=== PATIENT | female | born 1970 | race Caucasian/White ===

== ENCOUNTER 2024-07-06 12:05 | Day surgery (SDC) | payer MEDICAID, SELFPAY ==
--- NOTE | 2024-07-05 12:45 | ESHP_ITS ---
RE: STEPHENIE LAWLER : 1970 DATE OF ADMISSION: 07/05/2024 HISTORY OF PRESENT ILLNESS: This patient was seen by me at the [facility] on 05/10/2024. She was seen because of need for colonoscopy because of positive FOBT. The patient is 53 years old. She has had a colonoscopy 15 years ago and apparently, a polyp was removed in [place]. At the present time, she does not have any rectal bleeding, but has a positive FOBT. She denies any history of colon cancer in the family. PAST MEDICAL HISTORY: Anxiety and hyperlipidemia. PAST SURGICAL HISTORY: Endoscopy, breast reduction in 1988, fracture of the skull in 1976, and colonoscopy 15 years ago. PHYSICAL EXAMINATION: VITAL SIGNS: Her BMI was 31.26, pulse is 100, respirations 20, temperature was 97.5, and blood pressure was 145/94. GENERAL: Slightly obese white female who is weighing 185 pounds. HEENT: Head normal. Eyes, nose, and throat were normal. NECK: Normal. CHEST: Revealed regular breath sounds. ABDOMEN: Negative. IMPRESSION: 1. Gastrointestinal bleeding with positive fecal occult blood test. 2. Hyperlipidemia. COURSE OF ACTION: Advised the patient to undergo screening colonoscopy. The procedure was explained to her in detail including a perforation and bleeding, which requires surgical intervention. She is agreeable and wants to proceed with the colonoscopy, which is scheduled on 07/06/2024. DT: 12:09:44 TT: 12:44:00 Ref: [id number] - TID: [id number]
[2024-07-06] VITALS (11 sets, daily range): BP systolic 85–131; BP diastolic 59–94; PULSE 75–94; RESP 14–20; TEMP 36.8–36.9; O2SAT 91–98; BMI 31.1
--- NOTE | 2024-07-06 14:02 | SUR.OPER ---
1402 - INFORMED OF PATIENT'S REPORTED REACTION TO FENTANYL IS BAD DREAMS. PATIENT INFORMS , IT'S OKAY, I'LL BE FINE WITH THE DREAMS. IS OKAY TO PROCEED WITH PROCEDURE UNDER I.V. SEDATION.
[2024-07-06] MEDS: RINGERS LACTATED 1000 ML 1,000 ML 125 ML IV (14:05)
[2024-07-06] MEDS: MIDAZOLAM INJ 1 MG/ML VIAL 2 ML (ASD USE ONLY) 2 MG IVP (14:09)
[2024-07-06] MEDS: fentaNYL CIT INJ 50 mCg/ML AMP 2ML (ASD USE ONLY) IVP (14:15)
[2024-07-06] MEDS: DiphenhydrAMINE INJ 50 MG/ML VIAL 25 MG IVP (14:20)
== END 2024-07-06 15:25 | disposition home or self-care (01) ==
PROVIDERS: Referring Provider Surgery; Visit Provider Surgery
PROC: 0DBE8ZX Excision of Large Intestine, Via Natural or Artificial Opening Endoscopic, Diagnostic (ICD-10-PCS; CPT 45380; principal; 2024-07-06 13:45)
DX: K92.2 Gastrointestinal hemorrhage, unspecified (principal); Z86.0100 Personal history of colon polyps, unspecified; E78.5 Hyperlipidemia, unspecified
CPT/HCPCS: 45378; 81025; J1200; J2250; J3010; J7120